=== PATIENT | female | born 1980 | race Caucasian/White ===

== ENCOUNTER 2019-04-21 16:22 | Emergency (ER) | payer SELFPAY ==
[~2019-04-21] VITALS: Ht 165.1 cm; Wt 78.0 kg
[2019-04-21 16:25] VITALS: Ht 165.1 cm; Wt 78.0 kg
[2019-04-21 17:34] VITALS: BP 123/67
== END 2019-04-21 17:34 | disposition home or self-care (01) ==
LOC: ED 16:22
DX: R07.89 Other chest pain (principal); F41.9 Anxiety disorder, unspecified; Z90.49 Acquired absence of other specified parts of digestive tract